=== PATIENT | male | born 2000 | race Hispanic/Latino ===

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

== ENCOUNTER 2019-01-23 03:40 | Observation (INO) | payer BC ==
[2019-01-23] MEDS ORDERED: Vancomycin HCl 1.5 GM in Sodium Chloride 0.9% 250 ML 300 ML IVPB SCH (04:45)
[2019-01-23 04:54] LABS: Hemoglobin 13.7 g/dL (14.0-18.0); Mean Corpuscular HGB CONC 33.8 g/dL (32.0-36.0); Mean Corpuscular Hemoglobin 28.1 pg (25.0-35.0); Mean Corpuscular Volume 83.1 fL (78.0-98.0); Platelet Count 238 thou/uL (130-400); Red Blood Cell (RBC) Count 4.88 mill/uL (4.00-5.20); White Blood Cell (WBC) Count 14.9 thou/uL (4.8-10.8)
[2019-01-23] MEDS ORDERED: Acetaminophen 1,000 MG in Premix Bag 1 BAG IVPB SCH (05:00)
[2019-01-23 05:08] LABS: ALT (SGPT) 67 U/L (8-55); AST (SGOT) 32 U/L (10-45); Albumin 4.1 g/dL (3.5-5.0); Alkaline Phosphatase 52 U/L (Less than 750); Anion Gap 12 mmol/L (10-20); BUN (Urea Nitrogen) 12 mg/dL (8.4-21.0); Bilirubin, Total 0.5 mg/dL (0.2-1.2); Calc. Creatinine Clearance 0 mL/min (70-130); Calcium 8.8 mg/dL (7.8-10.44); Carbon Dioxide 22 mmol/L (22-29); Chloride 104 mmol/L (98-107); Estimated GFR-MDRD 87; Globulin 3.1 g/dL (2.4-3.5); Glucose 120 mg/dL (70-105); Potassium 3.9 mmol/L (3.5-5.1); Protein, Total 7.2 g/dL (6.0-8.3); Sodium 134 mmol/L (136-145)
[2019-01-23 05:32] LABS: Band 39 % (5-11); Lymphocytes 16 % (28-48); MDiff Complete? YES; Monocytes 5 % (0-4); Neutrophil 40 % (31-61); Platelet Morphology Comment Appears Adequate
[2019-01-23 06:09] LABS: CSF Source CSF; Clarity Clear (Clear); Tube # 1
[2019-01-23 06:12] LABS: Color Of CSF Supernatant COLORLESS (Colorless); Tube # 2; Unspun CSF Color COLORLESS (Colorless)
[2019-01-23 06:12] LABS: Clarity Clear (Clear); Leukocyte Negative (Negative)
[2019-01-23 06:13] LABS: Bacteria/HPF None Seen HPF (None Seen); Bilirubin Negative (Negative); Blood, Urine Trace (Negative); Glucose, Urine (Dipstick) Negative (Negative); Hyaline Casts/LPF NONE SEEN LPF (0-3 Hyaline); Nitrite Negative (Negative); Protein, Urine (Dipstick) Negative (Neg-Trace); Squamous Epithelial None Seen HPF (0-3); Transitional Epithelial NONE SEEN HPF (0-3); Trichomonas/HPF None Seen HPF (None Seen); Urobilinogen 0.2 mg/dL (0.2-1.0); WBC/HPF 0-3 HPF (0-3); Yeast-All Forms None Seen HPF (None Seen)
[2019-01-23 06:14] LABS: RBC Count - Manual 1 /cumm (None Seen); WBC/NonHematics Count - Manual 1 /cumm (0-5)
[2019-01-23 06:15] LABS: CSF, Glucose 73 mg/dl (40-70); CSF, Protein 23 mg/dL (15-40)
[2019-01-23 06:16] LABS: CSF Source CSF; Clarity Clear (Clear); Tube # 4
[2019-01-23 06:18] LABS: RBC Count - Manual 1 /cumm (None Seen); WBC/NonHematics Count - Manual 1 /cumm (0-5)
--- NOTE | 2019-01-23 09:34 | HP ---
HISTORY OF PRESENT ILLNESS: Thierno Baker is a 18-year-old male patient who works at [employer]. He has not traveled out of the country when he began having central to upper abdominal pain. He can generally points to his left upper quadrant, although points to his upper abdomen. He developed some nausea yesterday. He was noted to have some vomiting last night. He presented to the emergency room at [facility], and he was noted to have a fever. He underwent a CAT scan of chest, abdomen, and pelvis with IV without oral contrast. This was totally unremarkable, except some mildly dilated small bowel loops in the left upper quadrant without significant mesenteric edema. No other significant findings were noted. It was noted on that report that it is less likely that he did have an internal hernia. The patient has noted to have a persistent fever in the emergency room. His white count is 14 and hemoglobin 13. He does have 39% bands. His basic metabolic profile is normal with glucose of 120. Liver function tests are normal. His urinalysis is unremarkable. I have been asked by the emergency room physician to see him regarding their concerns as hospitalists were reluctant to admit him. I personally interviewed the patient, examined him. On exam, he has relatively soft abdomen with minimal guarding. He has slight tenderness in his left upper quadrant, but no peritoneal signs. I have personally reviewed his CAT scan with Dr. Schmitt, Radiology, and the [facility] CAT scan CD ROM has been loaded into the [facility] system. There is a segmentally dilated loop of small bowel in the left upper quadrant. There is no evidence of an internal hernia. There is a segmental dilatation, but no evidence of perforation and nothing surgical. Certainly, there is no evidence of internal hernia. PAST SURGICAL HISTORY: There is no past surgical history. ALLERGIES: NONE. TOBACCO: None. ALCOHOL: None. MEDICATIONS: None. PAST MEDICAL HISTORY: Noncontributory. REVIEW OF SYSTEMS: Noncontributory. PHYSICAL EXAMINATION: VITAL SIGNS: Fever to 101 degrees. 220 pounds, 100 kg, 103.4 degrees, respiratory rate 18, and heart rate 100. LUNGS: Clear to auscultation. CARDIAC: Regular rate and rhythm without murmur or gallop. ABDOMEN: Soft. Mild tenderness in his left upper quadrant. No guarding. No rebound. EXTREMITIES: Unremarkable. LABORATORY DATA: Urinalysis unremarkable. Blood gases at [facility]; pH 7.35, pCO2 of 41, PO2 of 29, and bicarb of 23. White count is [facility] at 13 and hemoglobin 14. ASSESSMENT AND PLAN: Abdominal pain. I have personally reviewed the CAT scan, PET scan with Radiology. In my opinion, there is no indication for surgical intervention. This is most likely a gastroenteritis of some sort. I would suggest admission to the medical service for IV hydration. The one could consider doing a small bowel follow-through to look at the small bowel using Gastrografin today. Otherwise, there is no surgical intervention. Most likely, this is a viral illness or nondescript gastroenteritis. Dr. Mackey is fashion patternmaker this weekend. Please call if he is needed. Otherwise, we will see him as needed. Job ID: [id number]
[2019-01-23 10:16] VITALS: BMI 33.4
[2019-01-23] MEDS ORDERED: Ondansetron PF 4 MG/2 ML Vial IVP PRN ×2 (10:51→11:06)
[2019-01-23] MEDS ORDERED: Ondansetron ODT 4 MG TAB SL PRN (10:51)
[2019-01-23] MEDS ORDERED: Acetaminophen 325 MG TAB PO PRN ×2 (10:51→11:06)
[2019-01-23] MEDS ORDERED: Sodium Chloride 0.9% 1,000 ML IV SCH (10:51)
[2019-01-23] MEDS ORDERED: Dicyclomine 20 MG TAB PO PRN (11:06)
[2019-01-23] MEDS ORDERED: Senokot S 8.6-50 MG TAB PO PRN (11:06)
[2019-01-23] MEDS ORDERED: Diabetic Tussin 200 MG/10 ML UDCUP PO PRN (11:06)
[2019-01-23] MEDS ORDERED: hydrALAZINE 20 MG/ML VIAL SLOW IVP PRN (11:06)
[2019-01-23] MEDS ORDERED: Artificial Tears 18 DROP/0.9 ML EA EYE PRN (11:06)
[2019-01-23] MEDS ORDERED: Ondansetron ODT 4 MG TAB PO PRN (11:06)
[2019-01-23] MEDS ORDERED: Zolpidem Tartrate 5 MG TAB PO PRN (11:06)
[2019-01-23] MEDS ORDERED: Bisacodyl 10 MG SUPP PR PRN (11:06)
[2019-01-23] MEDS ORDERED: Ketorolac Tromethamine 30 MG/ML VIAL IVP PRN (11:06)
[2019-01-23] MEDS ORDERED: Cepastat Lozenges 1 LOZ PO PRN (11:06)
[2019-01-23] MEDS ORDERED: Sodium Chloride 0.65% Nasal 44 ML BOT EA NARE PRN (11:06)
[2019-01-23] MEDS ORDERED: Loratadine 10 MG TAB PO PRN (11:06)
[2019-01-23] MEDS: Sodium Chloride 0.9% 1,000 ML IV SCH ×2 (11:18→20:04)
[2019-01-23] MEDS ORDERED: MD-Gastroview 120 ML BOT ONE (11:20)
--- NOTE | 2019-01-23 13:42 | HP ---
PRIMARY CARE PHYSICIAN: Dr. Willie White. REASON FOR ADMISSION: Sepsis. Transferred from outside emergency room. HISTORY OF PRESENT ILLNESS: A 18-year-old male, who has no known medical history, who presented to emergency room with complaint of left upper quadrant abdominal pain, sharp and spasmodic in nature, associated with nausea and vomiting. The patient's symptoms started on Saturday night. Initially symptoms were tolerable, but on , he has progression of symptoms with nausea, vomiting, and abdominal pain. He started also having fever. On night and early Saturday morning, the patient was having high-grade fever and that is why the patient was taken to initially at [facility], where the patient had CT scan, which did not show any appendicitis, but it did show some dilated small bowel loops without any mesenteric edema. The patient did not have any bowel movement since Saturday. He denies any abdominal distention. He had only one night with rigors. The patient denies any relation of symptoms with food. He denies any unusual food ingestion. He denies any sick exposure. He denies any recent travel. He denies any blood in bowel movement or in the vomitus. This patient was transferred to our emergency room. There was no clear-cut source of infection and that is why they did lumbar puncture because the patient started having headache with fever, and his CSF came back normal. Dr. Mendez was consulted and Dr. Mendez was not thinking that this patient has any surgical abdomen and does not require any surgery, and subsequently, the patient was admitted under Medicine Service. When I saw this patient at that time, the patient was having bowel movement, he was passing gas. He was feeling a bit better. He was afebrile. His parents were at bedside. He was hungry and he was asking for food. PAST MEDICAL HISTORY: Reviewed and negative. PAST SURGICAL HISTORY: Reviewed and negative. ALLERGIES: NO KNOWN DRUG ALLERGIES. SOCIAL HISTORY: The patient is a student. He just finished his high school. He denies any tobacco, alcohol, or illicit drug abuse. FAMILY HISTORY: No strong family history of premature coronary artery disease, stroke, or cancer. REVIEW OF SYSTEMS: CONSTITUTIONAL: Negative for weight loss or gain, ability to conduct usual activities. SKIN: Negative for rash, itching. EYES: Negative for double vision, pain. ENT/MOUTH: Negative for nose bleeding, neck stiffness, pain, tenderness. CARDIOVASCULAR: Negative for palpitations, dyspnea on exertion, orthopnea. RESPIRATORY: Negative for shortness of breath, wheezing, cough, hemoptysis, fever or night sweats. GASTROINTESTINAL: Negative for poor appetite, abdominal pain, heartburn, nausea, vomiting, constipation, or diarrhea. GENITOURINARY: Negative for urgency, frequency, dysuria, nocturia. MUSCULOSKELETAL: Negative for pain, swelling. NEUROLOGIC/PSYCHIATRIC: Negative for anxiety, depression. ALLERGY/IMMUNOLOGIC: Negative for skin rash, bleeding tendency. CURRENT HOME MEDICATIONS: The patient is not taking any prescribed or non-prescribed medication. EMERGENCY ROOM COURSE: This patient has received vancomycin, Rocephin, Zosyn, IV fluid, Toradol, morphine at other emergency room, and the patient also received Decadron. PHYSICAL EXAMINATION: VITAL SIGNS: Currently temperature 98.0, pulse 86, respiratory rate 18, saturation 96% on room air, blood pressure 115/69. This patient was febrile to temperature of 103.4 at [facility] and he was tachycardic at that time. GENERAL: The patient is currently alert and awake, in no obvious acute distress. HEENT: Head; normocephalic and atraumatic. Eyes; pupils are round and reactive to light. Extraocular muscles are intact. ENT, oropharynx within normal limits. Moist mucous membranes. No oral lesion. No pharyngeal erythema. No exudate. NECK: Supple. No JVD. No thyromegaly. No carotid bruit. No jugular venous distention. LUNGS: Clear to auscultation without any rhonchi or rales. CARDIAC: S1 and S2, regular. No murmur. No gallop. No rub. ABDOMEN: The patient does have vague discomfort in left upper quadrant, but no peritoneal sign. No guarding. No rigidity. No right lower quadrant pain. No organomegaly. No mass. No suprapubic tenderness. BACK: Unremarkable. No CVA tenderness. EXTREMITIES: Upper extremities; passive movement of all joints are normal. Lower extremities; no edema, good distal pulsation. SKIN: No skin rash. HEMATOLOGIC: No lymphadenopathy. NEUROLOGIC: Nonfocal examination. SIGNIFICANT LABORATORY DATA: WBC 14.9, hemoglobin 13.7, platelets 238, with bandemia. BMP; sodium 134, potassium 3.9, chloride 104, carbon dioxide 22, anion gap 12, BUN 12, creatinine 1.09, glucose 120, calcium 8.8. LFT; AST 32, ALT 67, alkaline phosphatase 52, albumin 4.1. Lactic acid 1.9. Urinalysis unremarkable. CSF normal. [facility] record completely reviewed. Abdomen and pelvis CT scan showing dilated loops in left upper quadrant without any obvious obstruction. Fatty liver. ASSESSMENT AND PLAN: Impression; 1. Sepsis. This patient has leukocytosis with bandemia. He had fever of 103.4, tachycardia. In this way, he meets sepsis criteria. Source of infection is unclear, most likely suspecting from gastroenteritis. 2. Gastroenteritis, presumed infectious. This patient has dilated bowel in left upper quadrant. He has abdominal crampy pain, nausea, and vomiting. Internal hernia is already excluded with CT scan. Possibility of partial small-bowel obstruction needs to be excluded, given the patient does not have any bowel movement since Saturday, but he just had bowel movement. We have done small bowel x-ray to rule out that possibility. General Surgery already evaluated this patient and they are not thinking this patient has any surgical abdomen. We will empirically treat with Cipro 400 mg IV b.i.d., Flagyl 500 mg IV q.8 hourly. His pain will be controlled with morphine and Toradol on p.r.n. basis. We will also continue with IV fluid and we will give him Bentyl on p.r.n. basis. After small bowel x-ray, if normal, then we will start clear liquid diet and advance diet as tolerated. 3. Fatty liver, likely due to his obesity. Dietary education given. Weight loss education given. 4. Obesity with BMI of 33. Dietary education given. Weight loss education given. 5. Deep venous thrombosis prophylaxis, SCD boots, because the patient is ambulatory. 6. Gastrointestinal prophylaxis, Pepcid 20 mg p.o. b.i.d. 7. Code status, the patient is full code. The patient's parent is surrogate decision maker. DISPOSITION PLAN: Based on clinical course. Plan of care extensively discussed with the patient's mother and father at bedside. Job ID: [id number]
[2019-01-23] MEDS: metroNIDAZOLE 500 MG in Premix Bag 1 BAG IVPB SCH ×2 (13:43→20:04)
--- NOTE | 2019-01-23 15:11 | RAD ---
SMALL BOWEL SERIES: HISTORY: Small bowel obstruction FINDINGS: There is unobstructed flow of contrast through the loops of small bowel into the colon and rectum by 2.5 hours after oral administration. The small bowel loops are of normal caliber. No abnormal loop dilatation or separation is seen. The mucosal pattern appears normal. IMPRESSION: Normal exam.
[2019-01-23] MEDS: Famotidine/PF 20 mg/2ml Vial SLOW IVP SCH (19:57)
[2019-01-23] MEDS: Famotidine 20 MG TAB PO SCH (20:04)
[2019-01-24] MEDS: Sodium Chloride 0.9% 1,000 ML IV SCH (02:58)
[2019-01-24] MEDS: metroNIDAZOLE 500 MG in Premix Bag 1 BAG IVPB SCH (03:57)
[2019-01-24 05:35] LABS: #Lymphocytes 2.1 thou/uL (1.20-3.40); #Monocytes 1.2 thou/uL (0.11-0.59); #Neutrophils 9.3 thou/uL (1.40-6.50); %Eosinophils 0.2 % (0.0-10.0); %Lymphocytes 16.4 % (28.0-48.0); %Monocytes 9.6 % (0.0-4.0); %Neutrophils 73.7 % (31.0-61.0); Hemoglobin 12.8 g/dL (14.0-18.0); Mean Corpuscular HGB CONC 33.7 g/dL (32.0-36.0); Mean Corpuscular Hemoglobin 28.2 pg (25.0-35.0); Mean Corpuscular Volume 83.6 fL (78.0-98.0); Mean Platelet Volume 7.8 fL (7.4-10.4); Platelet Count 241 thou/uL (130-400); RBC Distribution Width 13.2 % (11.5-14.5); Red Blood Cell (RBC) Count 4.54 mill/uL (4.00-5.20); White Blood Cell (WBC) Count 12.6 thou/uL (4.8-10.8)
[2019-01-24 05:59] LABS: ALT (SGPT) 62 U/L (8-55); AST (SGOT) 33 U/L (10-45); Albumin 3.7 g/dL (3.5-5.0); Alkaline Phosphatase 47 U/L (Less than 750); Anion Gap 14 mmol/L (10-20); BUN (Urea Nitrogen) 9 mg/dL (8.4-21.0); Bilirubin, Total 0.5 mg/dL (0.2-1.2); Calc. Creatinine Clearance 240 mL/min (70-130); Calcium 8.6 mg/dL (7.8-10.44); Carbon Dioxide 21 mmol/L (22-29); Chloride 106 mmol/L (98-107); Estimated GFR-MDRD Greater than 90; Globulin 3.1 g/dL (2.4-3.5); Glucose 102 mg/dL (70-105); Potassium 3.5 mmol/L (3.5-5.1); Protein, Total 6.8 g/dL (6.0-8.3); Sodium 137 mmol/L (136-145)
[2019-01-24 08:09] VITALS: BP 109/60; TEMP 98.1
[2019-01-24] MEDS: Famotidine 20 MG TAB PO SCH (08:33)
[2019-01-24] MEDS: Famotidine/PF 20 mg/2ml Vial SLOW IVP SCH (08:36)
--- NOTE | 2019-01-24 11:11 | DIS ---
DATE OF ADMISSION: 01/23/2019 DATE OF DISCHARGE: 01/24/2019 PRIMARY CARE PHYSICIAN: Dr. Willie White. DISCHARGE DISPOSITION: Home. PRIMARY DISCHARGE DIAGNOSES: 1. Sepsis, resolved. 2. Campylobacter gastroenteritis. SECONDARY DISCHARGE DIAGNOSES: Fatty liver, obesity with BMI 33. RADIOLOGICAL INVESTIGATION: Small-bowel x-ray which was normal. CT abdomen and pelvis was done at the [facility], which showed fluid in the left upper quadrant intestine. SIGNIFICANT LABORATORY DATA: WBC 12.6, platelet 241, hemoglobin 12.8, sodium 137, creatinine 0.70. LFT showed ALT 62. Urinalysis normal. CSF normal. PRIMARY PROCEDURE/OPERATION: Lumbar puncture was done in the emergency room. DISCHARGE MEDICATIONS: 1. Ciprofloxacin 500 mg p.o. b.i.d. for 7 days. 2. Florastor 250 mg p.o. daily for 7 days. CONTRAINDICATION: None. CODE STATUS: Full code. INPATIENT WET PROCESS MILLER: Dr. Mendez saw this patient in the emergency room. TEST RESULT PENDING ON DISCHARGE: None. ALLERGIES: NO KNOWN DRUG ALLERGIES. DISCHARGE PLAN: Posthospital, the patient is instructed to follow up with primary care physician. HOSPITAL COURSE: A 18-year-old male, who was admitted by me. Please see my HPI for further details. This patient works at [employer]. He had some chicken salad and subsequently later on he started having abdominal cramps and the next day he started having nausea, vomiting, and diarrhea and high-grade fever and that is why the patient was taken to [facility]. He had CT scan at [facility], which showed small bowel dilatation in the left upper quadrant without any obvious obstruction. The patient was having diarrhea and that is why we did stool study for infection and we found that the patient has Campylobacter diarrhea. We treated him empirically with Cipro and Flagyl while in the hospital. He was given IV fluids, symptomatic treatment. He had only 1 time fever at [facility] and subsequently, he did not have any further fever. His abdominal pain is also resolved. The patient has underlying fatty liver and mild LFT abnormality. The patient does not have any nausea or vomiting, does not have any abdominal cramps this time and he expressed his wish to go home. I have seen and examined the patient at bedside today. Plan of care discussed with the mother. REVIEW OF SYSTEMS: All review of systems reviewed with him and negative. PHYSICAL EXAMINATION: VITAL SIGNS: Currently, temperature 98.1, pulse 84, respiratory rate 16, saturation 98% on room air, blood pressure 109/60. Weight 220 pounds. GENERAL: The patient is currently alert and awake, no obvious acute distress. LUNGS: Clear to auscultation without any rhonchi or rales. CARDIAC: S1, S2. Regular without any murmur. ABDOMEN: Soft and benign. EXTREMITIES: No edema. NEUROLOGIC: Nonfocal examination. Overall, the patient is medically stable for discharge today. Job ID: [id number]
[2019-01-29 15:08] LABS: Routine O & P Final report (.)
== END 2019-01-24 11:31 | disposition home or self-care (01) ==
LOC: ERS 03:40 → T4-B 08:32
PROVIDERS: ADMIT Internal Medicine; ATTEND Internal Medicine
DX: A41.9 Sepsis, unspecified organism (principal); A04.5 Campylobacter enteritis; K76.0 Fatty (change of) liver, not elsewhere classified; E66.9 Obesity, unspecified; F90.9 Attention-deficit hyperactivity disorder, unspecified type
CPT/HCPCS: 36415; 62270; 74250; 80053; 81003; 81015; 82945; 83605; 84157; 85025; 87045; 87046; 87070; 87177; 87205; 87449; 87899; 89051; 96361; 96365; 96366; 96367; G0378; J0131; J0744; J3370; J7050; Q9963

== ENCOUNTER 2021-03-22 00:09 | Emergency (ER) | payer BC ==
[2021-03-22] MEDS ORDERED: Ondansetron PF 4 MG/2 ML Vial ONE (00:50)
[2021-03-22 01:13] LABS: #Basophils 0.1 thou/uL (0.0-0.2); #Eosinphils 0.1 thou/uL (0.0-0.7); #Lymphocytes 1.8 thou/uL (1.20-3.40); #Monocytes 0.6 thou/uL (0.11-0.59); #Neutrophils 4.9 thou/uL (1.40-6.50); %Basophils 0.9 % (0.0-1.0); %Eosinophils 1.1 % (0.0-10.0); %Lymphocytes 24.2 % (21.0-51.0); %Monocytes 8.3 % (0.0-10.0); %Neutrophils 65.5 % (42.0-75.0); Hemoglobin 15.4 g/dL (14.0-18.0); Mean Corpuscular HGB CONC 33.7 g/dL (32.0-36.0); Mean Corpuscular Hemoglobin 28.1 pg (27.0-31.0); Mean Corpuscular Volume 83.4 fL (78.0-98.0); Mean Platelet Volume 7.6 fL (7.4-10.4); Platelet Count 343 thou/uL (130-400); RBC Distribution Width 12.3 % (11.5-14.5); Red Blood Cell (RBC) Count 5.48 mill/uL (4.70-6.10); White Blood Cell (WBC) Count 7.4 thou/uL (4.8-10.8)
[2021-03-22 01:41] LABS: ALT (SGPT) 110 U/L (8-55); AST (SGOT) 61 U/L (5-34); Acetaminophen Less than 6.0 mcg/mL (10.0-30.0); Albumin 4.6 g/dL (3.5-5.0); Alcohol 177 mg/dL (Less than 10); Alkaline Phosphatase 69 U/L (40-110); Anion Gap 16 mmol/L (10-20); BUN (Urea Nitrogen) 8 mg/dL (8.9-20.6); Bilirubin, Total 0.5 mg/dL (0.2-1.2); Calc. Creatinine Clearance 0 mL/min (70-130); Calcium 9.4 mg/dL (7.8-10.44); Carbon Dioxide 21 mmol/L (22-29); Chloride 102 mmol/L (98-107); Globulin 4.4 g/dL (2.4-3.5); Glucose 97 mg/dL (70-105); Potassium 3.3 mmol/L (3.5-5.1); Salicylate Less than 8.0 mg/dL (15.0-30.0); Sodium 136 mmol/L (136-145)
== END 2021-03-22 02:56 | disposition home or self-care (01) ==
LOC: ERS 00:09
DX: F10.129 Alcohol abuse with intoxication, unspecified (principal); Y90.6 Blood alcohol level of 120-199 mg/100 ml; R00.0 Tachycardia, unspecified; R47.81 Slurred speech
CPT/HCPCS: 80053; 80307; 84443; 85025; 96374; J2405

== ENCOUNTER 2021-11-27 19:00 | Outpatient (CLI) | payer BC | END 2021-11-27 19:01 | disposition home or self-care (01) | LOC: SLEEPLAB 19:00 | PROVIDERS: ATTEND Family Medicine | DX: G47.33 Obstructive sleep apnea (adult) (pediatric) (principal); R53.83 Other fatigue; R06.83 Snoring; G47.00 Insomnia, unspecified; G47.10 Hypersomnia, unspecified; K21.9 Gastro-esophageal reflux disease without esophagitis; F98.8 Other specified behavioral and emotional disorders with onset usually occurring in childhood and adolescence | CPT/HCPCS: 95811 ==

== ENCOUNTER 2021-12-20 23:57 | Emergency (ER) | payer OTHER, BC ==
[2021-12-21 00:35] LABS: #Eosinphils 0.1 thou/uL (0.0-0.7); #Lymphocytes 2.2 thou/uL (1.20-3.40); #Monocytes 0.7 thou/uL (0.11-0.59); #Neutrophils 5.2 thou/uL (1.40-6.50); %Basophils 0.6 % (0.0-1.0); %Eosinophils 1.8 % (0.0-10.0); %Lymphocytes 26.7 % (21.0-51.0); %Monocytes 8.1 % (0.0-10.0); %Neutrophils 62.8 % (42.0-75.0); Hemoglobin 14.2 g/dL (14.0-18.0); Mean Corpuscular HGB CONC 33.1 g/dL (32.0-36.0); Mean Corpuscular Hemoglobin 28.3 pg (27.0-31.0); Mean Corpuscular Volume 85.3 fL (78.0-98.0); Mean Platelet Volume 7.1 fL (7.4-10.4); Platelet Count 373 thou/uL (130-400); RBC Distribution Width 13.1 % (11.5-14.5); Red Blood Cell (RBC) Count 5.02 mill/uL (4.70-6.10); White Blood Cell (WBC) Count 8.2 thou/uL (4.8-10.8)
[2021-12-21 01:00] LABS: ALT (SGPT) 66 U/L (8-55); AST (SGOT) 44 U/L (5-34); Albumin 4.6 g/dL (3.5-5.0); Alkaline Phosphatase 64 U/L (40-110); Anion Gap 16 mmol/L (10-20); BUN (Urea Nitrogen) 12 mg/dL (8.9-20.6); Bilirubin, Total 0.3 mg/dL (0.2-1.2); Calc. Creatinine Clearance 0 mL/min (70-130); Calcium 9.5 mg/dL (7.8-10.44); Carbon Dioxide 21 mmol/L (22-29); Chloride 107 mmol/L (98-107); Globulin 3.6 g/dL (2.4-3.5); Glucose 103 mg/dL (70-105); Lipase 19 U/L (8-78); Potassium 4.1 mmol/L (3.5-5.1); Protein, Total 8.2 g/dL (6.0-8.3); Sodium 140 mmol/L (136-145)
== END 2021-12-21 02:51 | disposition home or self-care (01) ==
LOC: ERS 23:57
DX: M25.532 Pain in left wrist (principal); M25.572 Pain in left ankle and joints of left foot; V89.2XXA Person injured in unspecified motor-vehicle accident, traffic, initial encounter
CPT/HCPCS: 70450; 70486; 71260; 72125; 74177; 80053; 83690; 84484; 85025

== ENCOUNTER 2022-03-22 20:54 | Emergency (ER) | payer BC ==
[2022-03-22] MEDS ORDERED: Cyclobenzaprine 10 MG TAB ONE (22:48)
== END 2022-03-23 00:07 | disposition home or self-care (01) ==
LOC: ERS 20:54
DX: G43.909 Migraine, unspecified, not intractable, without status migrainosus (principal); F17.290 Nicotine dependence, other tobacco product, uncomplicated
CPT/HCPCS: 99283

== ENCOUNTER 2023-03-29 16:54 | Emergency (ER) | payer OTHER, BC ==
[~2023-03-29 16:54] MED LIST: Iopamidol-370 76% 500 ML MDV (1 ML CHARGE) ONE
[2023-03-29 17:25] LABS: #Basophils 0.1 thou/uL (0.0-0.2); #Eosinphils 0.2 thou/uL (0.0-0.7); #Monocytes 0.6 thou/uL (0.11-0.59); #Neutrophils 6.1 thou/uL (1.40-6.50); %Basophils 0.6 % (0.0-1.0); %Eosinophils 2.4 % (0.0-10.0); %Lymphocytes 27.3 % (21.0-51.0); %Monocytes 6.6 % (0.0-10.0); %Neutrophils 62.6 % (42.0-75.0); Hemoglobin 15.1 g/dL (14.0-18.0); Mean Corpuscular HGB CONC 32.8 g/dL (32.0-36.0); Mean Corpuscular Hemoglobin 27.7 pg (27.0-31.0); Mean Corpuscular Volume 84.2 fl (78.0-98.0); Platelet Count 369 10x3/uL (130-400); RBC Distribution Width 13.6 % (11.5-14.5); Red Blood Cell (RBC) Count 5.46 mill/uL (4.70-6.10); White Blood Cell (WBC) Count 9.8 10x3/uL (4.8-10.8)
[2023-03-29] MEDS ORDERED: Ondansetron PF 4 MG/2 ML Vial ONE (17:30)
[2023-03-29] MEDS ORDERED: Morphine 4 MG/ML VIAL ONE (17:30)
[2023-03-29] MEDS ORDERED: CEFAZOLIN 2 GM VIAL ONE (17:30)
[2023-03-29] MEDS ORDERED: Boostrix 0.5 ML (Tdap) VIAL (>/=7 yrs of age) ONE (17:30)
[2023-03-29 17:40] LABS: INR-International Normal Ratio 1.1; PTT 28.8 sec (22.9-36.1); Prothrombin Time 14.5 sec (12.0-14.7)
[2023-03-29 17:49] LABS: ALT (SGPT) 72 U/L (8-55); AST (SGOT) 47 U/L (5-34); Albumin 4.6 g/dL (3.5-5.0); Alcohol Less than 10.0 mg/dL (Less than 10); Alkaline Phosphatase 66 U/L (40-110); Anion Gap 16 mmol/L (10-20); BUN (Urea Nitrogen) 11 mg/dL (8.9-20.6); Bilirubin, Total 0.5 mg/dL (0.2-1.2); Calc. Creatinine Clearance 0 mL/min (70-130); Calcium 9.5 mg/dL (7.8-10.44); Carbon Dioxide 21 mmol/L (22-29); Chloride 104 mmol/L (98-107); Estimated GFR 126; Globulin 3.7 g/dL (2.4-3.5); Glucose 89 mg/dL (70-105); Lipase 11 U/L (8-78); Potassium 3.5 mmol/L (3.5-5.1); Protein, Total 8.3 g/dL (6.0-8.3); Sodium 137 mmol/L (136-145)
[2023-03-29] MEDS ORDERED: Lidocaine 1% w/Epinephrine 1:100K 20 ML VIAL ONE (18:33)
== END 2023-03-29 20:42 | disposition home or self-care (01) ==
LOC: ERS 16:54
DX: S00.03XA Contusion of scalp, initial encounter (principal); F17.290 Nicotine dependence, other tobacco product, uncomplicated; V43.52XA Car driver injured in collision with other type car in traffic accident, initial encounter; Z23 Encounter for immunization
CPT/HCPCS: 12014; 70450; 70486; 71045; 71260; 72125; 74177; 80053; 80307; 83690; 85025; 85610; 85730; 90471; 90715; 96365; 96375; J2270; J2405; Q9967